=== PATIENT | female | born 1935 | race Caucasian/White ===

== ENCOUNTER 2023-02-13 05:27 | Emergency (ER) | payer MEDICARE, OTHER ==
[~2023-02-13] VITALS: Ht 162.6 cm; Wt 73.0 kg
[2023-02-13 05:35] VITALS: O2SAT 97
[2023-02-13] MEDS ORDERED: KETOROLAC 30MG/ML VIAL IV STA (05:44)
[2023-02-13 06:11] VITALS: RESP 18
[2023-02-13] MEDS ORDERED: TOPUD PO (07:31)
[2023-02-13 08:00] VITALS: BP 120/52; PULSE 64; TEMP 98.7
[2023-02-14] MEDS ORDERED: CLIN-194 MT (13:36)
== END 2023-02-13 08:33 | disposition home or self-care (01) ==
LOC: ER 06:12
DX: J02.8 Acute pharyngitis due to other specified organisms (principal); I50.9 Heart failure, unspecified; Z96.653 Presence of artificial knee joint, bilateral; Z88.8 Allergy status to other drugs, medicaments and biological substances
CPT/HCPCS: 99283; 96374; 87430; 87070; J1885

== ENCOUNTER 2023-02-14 07:03 | Emergency (ER) | payer MEDICARE, OTHER ==
[~2023-02-14] VITALS: Ht 160 cm; Wt 60.0 kg
[~2023-02-14 07:03] MED LIST: TOPUD PO
[2023-02-14 07:29] VITALS: O2SAT 97
[2023-02-14] MEDS ORDERED: DEXAMETHASONE 4MG/ML 1ML VIAL IM ONE (08:15)
[2023-02-14] MEDS ORDERED: KETOROLAC 15MG/ML VIAL IM ONE (08:15)
[2023-02-14] MEDS ORDERED: THROAT LOZENGES-BENZOCAINE/MENTH/CETYLPYRD CL LOZENGES MM PRN (08:15)
[2023-02-14] MEDS ORDERED: CLIN-194 MT (13:36)
[2023-02-14 13:43] VITALS: BP 130/79; PULSE 83; RESP 19; TEMP 98.2
== END 2023-02-14 15:10 | disposition home or self-care (01) ==
LOC: ER 07:41
DX: J02.9 Acute pharyngitis, unspecified (principal); M54.2 Cervicalgia; I50.9 Heart failure, unspecified; Z88.1 Allergy status to other antibiotic agents
CPT/HCPCS: 99285; 70490; 96372; J1100; J1885